=== PATIENT | female | born 1945 ===

== ENCOUNTER 2016-06-03 12:58 | Observation (INO) | payer MEDICARE, OTHER ==
[2016-06-03 12:58] VITALS: BMI 28.3
--- NOTE | 2016-06-03 13:31 | ED PDOC ---
HPI: Eye Injury/Pain Time Seen by Provider: 06/03/16 13:01 Chief Complaint (Nursing): Eye Problem History Per: Patient History/Exam Limitations: no limitations Onset/Duration Of Symptoms: Days (2), Gradual Current Symptoms Are (Timing): Still Present Severity: Mild Wears Contact Lens?: No Associated Symptoms: Discharge From Eye (mild). denies: Decreased Vision, Swelling, FB Sensation, Itching Additional History Per: Patient Additional Complaint(s): sent in by same day surgery for conjunctivitis schedule for ORIF Past Medical History Reviewed: Historical Data, Nursing Documentation, Vital Signs Vital Signs: Last Vital Signs Temp Pulse Resp BP Pulse Ox 98 06/03/16 13:00 - Medical History PMH: Alzheimer's Disease, Arthritis, Dementia, HTN, Hypothyroidism, Rheumatoid Arthritis Denies: Chronic Kidney Disease - Family History Family History: States: Unknown Family Hx - Living Arrangements Living Arrangements: With Family - Social History Current smoker - smoking cessation education provided: No - Home Medications Home Medications: Ambulatory Orders Medication Instructions Recorded Alendronate Sodium/Vitamin D3 1 tab PO DAILY 06/03/16 [Fosamax Plus D 70 mg-5600 Iu] Aspirin [Ecotrin] 81 mg PO DAILY 06/03/16 Celecoxib [CeleBREX] 200 mg PO DAILY 06/03/16 Clonazepam [Klonopin] 0.5 mg PO DAILY 06/03/16 Enalapril Maleate [Vasotec] 20 mg PO DAILY 06/03/16 Ergocalciferol [Drisdol 50,000 1 cap PO DAILY 06/03/16 Intl Units Cap] Esomeprazole Magnesium [Nexium] 40 mg PO DAILY 06/03/16 Etanercept [Enbrel] 50 mg SC .QWEEK 06/03/16 Folic Acid 1 mg PO DAILY 06/03/16 Gabapentin [Neurontin] 100 mg PO HS 06/03/16 Levocetirizine Dihydrochloride 5 mg PO DAILY 06/03/16 [Xyzal] Levothyroxine [Synthroid] 50 mcg PO DAILY 06/03/16 Metoprolol Tartrate [Lopressor] 50 mg PO DAILY 06/03/16 Rivastigmine 9.5 mg/24 hr [Exelon 1 patch .ROUTE DAILY 06/03/16 9.5 mg/24 hr Patch] traMADol [Ultram] 50 mg PO DAILY 06/03/16 - Allergies Allergies/Adverse Reactions: Allergies Allergy/AdvReac Type Severity Reaction Status Date / Time No Known Allergies Allergy Verified 06/03/16 13:00 Review of Systems ROS Statement: Except As Marked, All Systems Reviewed And Found Negative Constitutional: Negative for: Fever, Chills Eyes: Positive for: Conjunctivae Inflammation. Negative for: Pain, Vision Change, Eyelid Inflammation Cardiovascular: Negative for: Chest Pain Respiratory: Negative for: Cough, Shortness of Breath Gastrointestinal: Negative for: Nausea, Vomiting Neurological: Negative for: Weakness, Numbness, Headache Physical Exam - Reviewed Nursing Documentation Reviewed: Yes Vital Signs Reviewed: Yes - Physical Exam Appears: Positive for: Uncomfortable Head Exam: Positive for: ATRAUMATIC, NORMAL INSPECTION, NORMOCEPHALIC Eye Exam: Positive for: Normal appearance, EOMI, PERRL. Negative for: Periorbital swelling, Periorbital tenderness, Conjunctival injection Neck: Positive for: Normal, Painless ROM, Supple. Negative for: Decreased ROM, Limited ROM, Trachea Midline Cardiovascular/Chest: Positive for: Regular Rate, Rhythm, Chest Non Tender. Negative for: Edema, Gallop, Murmur, Bradycardia, Tachycardia Respiratory: Positive for: Normal Breath Sounds. Negative for: Decreased Breath Sounds, Accessory Muscle Use, Crackles, Rales, Rhonchi, Stridor, Wheezing Extremity: Positive for: Normal ROM. Negative for: Tenderness, Pedal Edema Neurologic/Psych: Positive for: Alert, box bender II-XII, Oriented. Negative for: Motor/Sensory Deficits - ECG O2 Sat by Pulse Oximetry: 98 Pulse Ox Interpretation: Normal Disposition - Clinical Impression Clinical Impression: Conjunctivitis - Patient ED Disposition Is Patient to be Admitted: Yes Counseled Patient/Family Regarding: Studies Performed, Diagnosis - Disposition Disposition Time: 13:31 Condition: STABLE - Pt Status Changed To: Hospital Disposition Of: Observation - POA Present On Arrival: None
[2016-06-03 14:02] LABS: BASO % 0.8 % (0.0-2.0); EOS # 0.1 K/uL (0.0-0.7); HEMATOCRIT 32.8 % (34.0-47.0); LYMPH # 1.8 K/uL (1.0-4.3); MEAN CELL VOLUME 86.9 fl (81.0-99.0); MEAN CORPUSCULAR HEMOGLOBIN 29.2 pg (27.0-31.0); MEAN CORPUSCULAR HGB CONC 33.6 g/dL (33.0-37.0); MEAN PLATELET VOLUME 8.6 fl (7.2-11.7); MONO # 0.5 K/uL (0.0-0.8); MONO % 7.9 % (0.0-10.0); NEUT # 3.3 K/uL (1.8-7.0); NEUT % 58.3 % (50.0-75.0); NRBC % 0.2 % (0.0-0.0); RED CELL DISTRIBUTION WIDTH 14.3 % (11.5-14.5); WHITE BLOOD COUNT 5.7 K/uL (4.8-10.8)
[2016-06-03 14:32] LABS: ALB/GLOB RATIO 1.1 (1.0-2.1); ALKALINE PHOSPHATASE 101 U/L (38-126); ALT/SGPT 19 U/L (9-52); AST/SGOT 26 U/L (14-36); BILIRUBIN,TOTAL 0.5 mg/dl (0.2-1.3); BLOOD UREA NITROGEN 10 mg/dl (7-17); CALCIUM 9.1 mg/dL (8.4-10.2); CARBON DIOXIDE 24 mmol/L (22-30); CHLORIDE 106 mmol/L (98-107); GFR AFRICAN-AMERICAN > 60; GLUCOSE,RANDOM 181 mg/dL (65-105); POTASSIUM 3.3 MMOL/L (3.6-5.0); SODIUM 143 mmol/l (132-148); TOTAL PROTEIN 6.8 G/DL (6.3-8.2)
--- NOTE | 2016-06-03 15:57 | CP.PCM.HP ---
History of Present Illness - History of Present Illness History of Present Illness: Chief complaint : Left eye redness , left shoulder pain HPI: 70 y/o lady with hx of HTN , RA,OA, Dementia, Hypothyroidism, came in for scheduled left shoulder ORIF. The patient had a history of fall in February 2016 and since then has been having severe pain on her left shoulder. She was seen by Dr Max and was worked up for this . She is unable to do full ROM of the left shoulder despite daily intake of analgesics. MRI of the Left shoulder showed Humeral Head Impaction. She was then advised surgery - pt scheduled for surgery today however cancelled due to eye infection. 2 days ago she woke up with left eye redness , noted some discharge and crusting . Denies eye pain but states she has eye itching. Denies visual change, no headache. No fever. Hx of mild cataract on the same eye but was told she didnt need surgery yet. Code Status: Full Code Surrogate Decision Maker : sven Scherer Present on Admission - Present on Admission Any Indicators Present on Admission: No Review of Systems - Review of Systems Review of Systems: All systems: reviewed and no additional remarkable complaints except - Constitutional Constitutional: absent: Fever, Headache - EENT Eyes: Discharge, Irritation, Itchy Eyes, Other (erythema). absent: Blurred Vision, Change in Vision, Diplopia, Pain Ears: absent: Ear Discharge, Ear Pain, Tinnitus Nose/Mouth/Throat: absent: Nasal Congestion, Nose Pain, Sinus Pressure - Cardiovascular Cardiovascular: absent: Chest Pain, Chest Pain at Rest, Dyspnea, Lightheadedness , Orthopnea - Respiratory Respiratory: absent: Cough, Dyspnea, Dyspnea on Exertion - Gastrointestinal Gastrointestinal: absent: Nausea, Vomiting - Genitourinary Genitourinary: absent: Dysuria, Hematuria - Musculoskeletal Musculoskeletal: Arthralgias, Limited Range of Motion - Integumentary Integumentary: absent: Pruritus, Rash - Neurological Neurological: Memory Loss. absent: Focal Weakness, Headaches - Psychiatric Psychiatric: absent: Depression - Endocrine Endocrine: absent: Polydipsia, Polyphagia, Polyuria - Hematologic/Lymphatic Hematologic: absent: Easy Bleeding, Easy Bruising Past Patient History - Infectious Disease Hx of Infectious Diseases: None - Tetanus Immunizations Tetanus Immunization: Unknown - Past Medical History & Family History Past Medical History?: Yes - Past Social History Smoking Status: Never Smoked Chewing Tobacco Use: No Cigar Use: No Alcohol: None Drugs: Denies Home Situation {Lives}: Alone Domestic Violence: Negative - CARDIAC Hx Hypertension: Yes - PULMONARY Hx Respiratory Disorders: No - NEUROLOGICAL Hx Alzheimer's Disease: Yes Hx Dementia: Yes - HEENT Hx HEENT Problems: No Hx Cataracts: Yes - RENAL Hx Chronic Kidney Disease: No - ENDOCRINE/METABOLIC Hx Hypothyroidism: Yes - HEMATOLOGICAL/ONCOLOGICAL Hx Blood Disorders: No Hx Blood Transfusions: No - INTEGUMENTARY Hx Dermatological Problems: No - MUSCULOSKELETAL/RHEUMATOLOGICAL Hx Arthritis: Yes Hx Rheumatoid Arthritis: Yes - GASTROINTESTINAL Hx Gastrointestinal Disorders: No Other/Comment: GERD - GENITOURINARY/GYNECOLOGICAL Hx Genitourinary Disorders: No - PSYCHIATRIC Hx Psychophysiologic Disorder: No Hx Substance Use: No - SURGICAL HISTORY Hx Surgeries: Yes Other/Comment: RIGHT FOOT SURGERY-3 YEARS AGO. REMOVAL OF CYST BOTH BREAST-15 YEARS AGO - ANESTHESIA Hx Anesthesia: Yes Hx Anesthesia Reactions: No Hx Malignant Hyperthermia: No Meds Allergies/Adverse Reactions: Allergies Allergy/AdvReac Type Severity Reaction Status Date / Time No Known Allergies Allergy Verified 06/03/16 13:00 Physical Exam - Constitutional Additional comments: Physical Exam - Constitutional Appears: No Acute Distress - Head Exam Head Exam: NORMAL INSPECTION, NORMOCEPHALIC - Eye Exam Eye Exam: Conjunctival injection (left), EOMI, PERRL Additional comments: conjunctival erythema left eye, nontender - ENT Exam ENT Exam: Mucous Membranes Dry, Normal External Ear Exam - Neck Exam Neck exam: Positive for: Full Rom. Negative for: Meningismus - Respiratory Exam Respiratory Exam: NORMAL BREATHING PATTERN. absent: Respiratory Distress - Cardiovascular Exam Cardiovascular Exam: REGULAR RHYTHM, +S1, +S2 - GI/Abdominal Exam GI & Abdominal Exam: Normal Bowel Sounds, Soft. absent: Tenderness - Extremities Exam Extremities exam: Positive for: normal capillary refill, pedal pulses present. Negative for: calf tenderness Additional comments: left shoulder pain on ROM Hand RA deformity - Back Exam Back exam: NORMAL INSPECTION. absent: CVA tenderness (L), CVA tenderness (R), paraspinal tenderness - Neurological Exam Neurological exam: Alert, Oriented x3, Reflexes Normal - Psychiatric Exam Psychiatric exam: Normal Affect, Normal Mood - Skin Skin Exam: Dry, Normal Color, Warm Results - Vital Signs Recent Vital Signs: Last Vital Signs Temp Pulse Resp BP Pulse Ox 98 06/03/16 13:31 - Labs Result Diagrams: 06/03/16 13:40 06/03/16 13:40 Labs: Laboratory Results - last 24 hr 06/03/16 13:40 WBC 5.7 RBC 3.77 L Hgb 11.0 L Hct 32.8 L MCV 86.9 MCH 29.2 MCHC 33.6 RDW 14.3 Plt Count 215 MPV 8.6 Neut % (Auto) 58.3 Lymph % (Auto) 31.0 [place] % (Auto) 7.9 Eos % (Auto) 2.0 Baso % (Auto) 0.8 Neut # 3.3 Lymph # 1.8 [place] # 0.5 Eos # 0.1 Baso # 0.0 Sodium 143 Potassium 3.3 L Chloride 106 Carbon Dioxide 24 Anion Gap 16 BUN 10 Creatinine 0.6 L Est GFR ( Amer) > 60 Est GFR (Non-Af Amer) > 60 Random Glucose 181 H Calcium 9.1 Total Bilirubin 0.5 AST 26 ALT 19 Alkaline Phosphatase 101 Total Protein 6.8 Albumin 3.6 Globulin 3.2 Albumin/Globulin Ratio 1.1 - EKG Data EKG Interpreted by: Myself EKG shows normal: Sinus rhythm Assessment & Plan - Assessment and Plan (Free Text) Assessment: 70 y/o lady with hx of RA, HTN, Dementia, Hypothyroidism, presented to the Same Day Surgery Unit for scheduled left shoulder surgery, complains of left shoulder pain. Also found to have left conjunctival erythema. (1) Left shoulder pain Status: Chronic Hx of fall in February since then has had severe left shoulder pain and unable to do ROM scheduled for left shoulder ORIF Pain mgt Ortho consult (2) Rheumatoid arthritis Status: Chronic Pt on Enbrel Pain mgt (3) Conjunctival hyperemia, left eye poss Conjunctivitis Status: Acute Ophtha consult start antibiotic eye drops (4) HTN (hypertension) Status: Chronic cont Vasotec and Atenolol off ASA for 6 days (5) Hypothyroidism Status: Chronic cont Levothyroxine (6) Dementia Status: Chronic Pt on Exelon patch ( 7 ) Anxiety - pt on Klonopin Decision To Admit - Pt Status Changed To: Hospital Disposition Of: Inpatient - Admit Certification Admit to Inpatient:: After my assessment, the patient will require hospitalization for at least two midnights. This is because of the severity of symptoms shown, intensity of services needed, and/or the medical risk in this patient being treated as an outpatient. - . Bed Request Type: Med/Surg Admitting Physician: Mervat Gunderson
[2016-06-03] MEDS ORDERED: Potassium Chloride 20 mEq ER Tab PO ONE ×2 (16:02→19:43)
--- NOTE | 2016-06-03 17:21 | CP.PCM.CON ---
History of Present Illness - History of Present Illness History of Present Illness: ID: 70 yo female present with pain and rstricted ROM L shoulder pt with eye pain and evidence for conjunctivitis Past Patient History - Infectious Disease Hx of Infectious Diseases: None - Tetanus Immunizations Tetanus Immunization: Unknown - Past Medical History & Family History Past Medical History?: Yes - Past Social History Smoking Status: Never Smoked Chewing Tobacco Use: No Cigar Use: No Alcohol: None Drugs: Denies Home Situation {Lives}: Alone Domestic Violence: Negative - CARDIAC Hx Hypertension: Yes - PULMONARY Hx Respiratory Disorders: No - NEUROLOGICAL Hx Alzheimer's Disease: Yes Hx Dementia: Yes - HEENT Hx HEENT Problems: No Hx Cataracts: Yes - RENAL Hx Chronic Kidney Disease: No - ENDOCRINE/METABOLIC Hx Hypothyroidism: Yes - HEMATOLOGICAL/ONCOLOGICAL Hx Blood Disorders: No Hx Blood Transfusions: No - INTEGUMENTARY Hx Dermatological Problems: No - MUSCULOSKELETAL/RHEUMATOLOGICAL Hx Arthritis: Yes Hx Rheumatoid Arthritis: Yes - GASTROINTESTINAL Hx Gastrointestinal Disorders: No Other/Comment: GERD - GENITOURINARY/GYNECOLOGICAL Hx Genitourinary Disorders: No - PSYCHIATRIC Hx Psychophysiologic Disorder: No Hx Substance Use: No - SURGICAL HISTORY Hx Surgeries: Yes Other/Comment: RIGHT FOOT SURGERY-3 YEARS AGO. REMOVAL OF CYST BOTH BREAST-15 YEARS AGO - ANESTHESIA Hx Anesthesia: Yes Hx Anesthesia Reactions: No Hx Malignant Hyperthermia: No Meds Allergies/Adverse Reactions: Allergies Allergy/AdvReac Type Severity Reaction Status Date / Time No Known Allergies Allergy Verified 06/03/16 13:00 - Medications Medications: Current Medications Ciprofloxacin (Ciloxan 0.3% Oph Soln) 1 drop OS Q4 [facility] Clonazepam (Klonopin) 0.25 mg PO HS [facility] Enalapril Maleate (Vasotec) 20 mg PO BID [facility] Folic Acid (Folic Acid) 1 mg PO DAILY [facility] Gabapentin (Neurontin) 100 mg PO HS [facility] Home Med (Ropinirole Hcl [Ropinirole Hcl]) 1 tab PO HS [facility] Levothyroxine Sodium (Synthroid) 50 mcg PO DAILY [facility] Metoprolol Succinate (Toprol Xl) 50 mg PO DAILY [facility] Rivastigmine (Exelon 9.5 Mg/24 Hr Patch) 1 patch TD DAILY [facility] Tramadol HCl (Ultram) 50 mg PO Q12H J CARLOS Physical Exam - Additional Findings Additional findings: systemic-please efer to hospitalist note Musculoskekltal stance.gait- defrred pt presents with paim amd rstricted L shouder ROM N/V intact nmo gross deficits orthopedically stable Results - Vital Signs Recent Vital Signs: Last Vital Signs Temp Pulse Resp BP Pulse Ox 98 06/03/16 13:31 - Labs Result Diagrams: 06/03/16 13:40 06/03/16 13:40 Labs: Laboratory Results - last 24 hr 06/03/16 13:40 WBC 5.7 RBC 3.77 L Hgb 11.0 L Hct 32.8 L MCV 86.9 MCH 29.2 MCHC 33.6 RDW 14.3 Plt Count 215 MPV 8.6 Neut % (Auto) 58.3 Lymph % (Auto) 31.0 [place] % (Auto) 7.9 Eos % (Auto) 2.0 Baso % (Auto) 0.8 Neut # 3.3 Lymph # 1.8 [place] # 0.5 Eos # 0.1 Baso # 0.0 Sodium 143 Potassium 3.3 L Chloride 106 Carbon Dioxide 24 Anion Gap 16 BUN 10 Creatinine 0.6 L Est GFR ( Amer) > 60 Est GFR (Non-Af Amer) > 60 Random Glucose 181 H Calcium 9.1 Total Bilirubin 0.5 AST 26 ALT 19 Alkaline Phosphatase 101 Total Protein 6.8 Albumin 3.6 Globulin 3.2 Albumin/Globulin Ratio 1.1 - Impressions Impression: Imaging Xrayus reval non unio greater tuberosity fx p pt afdmitted for treatment of eye infection after medical stabilization for ORIF L prox humerus fx
[2016-06-03] MEDS: Ciprofloxacin 0.3% OPTH SOLN OS SCH ×2 (20:05→23:01)
[2016-06-03] MEDS ORDERED: ROPINIROLE HCL PO SCH (22:00)
[2016-06-04] MEDS: Ciprofloxacin 0.3% OPTH SOLN OS SCH ×6 (01:08→21:06)
[2016-06-04] MEDS: Levothyroxine 50 MCG TAB PO SCH (06:12)
--- NOTE | 2016-06-04 07:52 | CP.PCM.PN ---
Subjective - Date & Time of Evaluation Date of Evaluation: 06/04/16 Time of Evaluation: 07:40 - Subjective Subjective: S-pt stil;l withpain and rstricted ROM L shoulder/ pt with conjunctivitis L eye Objective - Vital Signs/Intake and Output Vital Signs (last 24 hours): Temp Pulse Resp BP Pulse Ox 98.5 F 58 L 20 138/79 98 06/03/16 21:57 06/04/16 00:07 06/04/16 00:07 06/03/16 21:57 06/04/16 00:07 - Medications Medications: Current Medications Ciprofloxacin (Ciloxan 0.3% [facility]) 1 drop OS Q4 [facility] Last Admin: 06/04/16 04:50 Dose: 1 drop Clonazepam (Klonopin) 0.25 mg PO HS [facility] Last Admin: 06/03/16 23:00 Dose: 0.25 mg Enalapril Maleate (Vasotec) 20 mg PO BID [facility] Last Admin: 06/03/16 20:03 Dose: 20 mg Folic Acid (Folic Acid) 1 mg PO DAILY [facility] Gabapentin (Neurontin) 100 mg PO HS [facility] Last Admin: 06/03/16 23:00 Dose: 100 mg Home Med (Ropinirole Hcl [Ropinirole Hcl]) 1 tab PO HS [facility] Levothyroxine Sodium (Synthroid) 50 mcg PO DAILY@0630 [facility] Last Admin: 06/04/16 06:12 Dose: 50 mcg Metoprolol Succinate (Toprol Xl) 50 mg PO DAILY [facility] Pneumococcal Polyvalent Vaccine (Pneumovax 23 Vaccine) 0.5 ml IM .ONCE ONE Stop: 06/04/16 09:01 Rivastigmine (Exelon 9.5 Mg/24 Hr Patch) 1 patch TD DAILY [facility] Tramadol HCl (Ultram) 50 mg PO Q12H [facility] Last Admin: 06/04/16 04:48 Dose: 50 mg - Labs Labs: 06/03/16 13:40 06/03/16 13:40 - Additional Findings Additional findings: O- pt still with tearing erythema and discomfort L eye systemic exam wnl otherwisw pt with opain and restriucted L shoulder ROM Assessment and Plan - Assessment and Plan (Free Text) Assessment: A-0 L prox humerus fx conjunctivitis L eye P- to ORtomorrow after medical clearance Dr grove on consult
[2016-06-04] MEDS ORDERED: Pneumococcal 23-Valent Vaccine IM ONE (09:00)
[2016-06-04] MEDS: Metoprolol Succinate 50 mg XL Tab PO SCH (10:33)
[2016-06-04 11:10] LABS: RBC URINE 3 /hpf (0-3); RENAL EPITHELIAL < 1 /hpf (0-3); URINE BILIRUBIN NEGATIVE (NEGATIVE); URINE BLOOD NEGATIVE (NEGATIVE); URINE COLOR YELLOW (YELLOW); URINE GLUCOSE (UA) NEG (Normal); URINE KETONE NEGATIVE (NEGATIVE); URINE LEUKOCYTE ESTERASE SMALL Leu/uL (Negative); URINE PROTEIN NEGATIVE (NEGATIVE); URINE UROBILINOGEN 0.2-1.0 mg/dL (0.2-1.0); WBC URINE 15 /hpf (0-5)
--- NOTE | 2016-06-04 11:17 | CP.PCM.CON ---
History of Present Illness - History of Present Illness History of Present Illness: 70 y/o lady with hx of HTN , RA,OA, Dementia, Hypothyroidism, came in for scheduled left shoulder ORIF. The patient had a history of fall in February 2016 and since then has been having severe pain on her left shoulder. 2 days ago she woke up with left eye redness , noted some discharge and crusting . Denies eye pain but states she has eye itching. Denies visual change, no headache. No fever. Hx of mild cataract on the same eye but was told she didnt need surgery yet. Past Patient History - Infectious Disease Hx of Infectious Diseases: None - Tetanus Immunizations Tetanus Immunization: Unknown - Past Medical History & Family History Past Medical History?: Yes - Past Social History Smoking Status: Never Smoked - CARDIAC Hx Cardiac Disorders: Yes Hx Hypertension: Yes - PULMONARY Hx Respiratory Disorders: No - NEUROLOGICAL Hx Neurological Disorder: Yes Hx Alzheimer's Disease: Yes Hx Dementia: Yes - HEENT Hx HEENT Problems: Yes Hx Cataracts: Yes (hx of mild cataract on left eye but told no sx needed yet) - RENAL Hx Chronic Kidney Disease: No - ENDOCRINE/METABOLIC Hx Endocrine Disorders: Yes Hx Hypothyroidism: Yes - HEMATOLOGICAL/ONCOLOGICAL Hx Blood Disorders: No - INTEGUMENTARY Hx Dermatological Problems: No - MUSCULOSKELETAL/RHEUMATOLOGICAL Hx Musculoskeletal Disorders: Yes Hx Arthritis: Yes Hx Falls: Yes Hx Rheumatoid Arthritis: Yes - GASTROINTESTINAL Hx Gastrointestinal Disorders: Yes Other/Comment: GERD - GENITOURINARY/GYNECOLOGICAL Hx Genitourinary Disorders: No - PSYCHIATRIC Hx Psychophysiologic Disorder: No Hx Substance Use: No - SURGICAL HISTORY Hx Surgeries: Yes Other/Comment: RIGHT FOOT SURGERY-3 YEARS AGO. REMOVAL OF CYST BOTH BREAST-15 YEARS AGO - ANESTHESIA Hx Anesthesia: Yes Hx Anesthesia Reactions: No Hx Malignant Hyperthermia: No Meds Allergies/Adverse Reactions: Allergies Allergy/AdvReac Type Severity Reaction Status Date / Time No Known Allergies Allergy Verified 06/03/16 13:00 - Medications Medications: Current Medications Ciprofloxacin (Ciloxan 0.3% Oph Soln) 1 drop OS Q4 [facility] Last Admin: 06/04/16 10:30 Dose: 1 drop Clonazepam (Klonopin) 0.25 mg PO HS [facility] Last Admin: 06/03/16 23:00 Dose: 0.25 mg Enalapril Maleate (Vasotec) 20 mg PO BID [facility] Last Admin: 06/04/16 10:34 Dose: 20 mg Folic Acid (Folic Acid) 1 mg PO DAILY [facility] Last Admin: 06/04/16 10:31 Dose: 1 mg Gabapentin (Neurontin) 100 mg PO HS [facility] Last Admin: 06/03/16 23:00 Dose: 100 mg Home Med (Ropinirole Hcl [Ropinirole Hcl]) 1 tab PO [facility] Levothyroxine Sodium (Synthroid) 50 mcg PO DAILY@0630 [facility] Last Admin: 06/04/16 06:12 Dose: 50 mcg Metoprolol Succinate (Toprol Xl) 50 mg PO DAILY [facility] Last Admin: 06/04/16 10:33 Dose: 50 mg Rivastigmine (Exelon 9.5 Mg/24 Hr Patch) 1 patch TD DAILY [facility] Last Admin: 06/04/16 10:31 Dose: 1 patch Tramadol HCl (Ultram) 50 mg PO Q12H [facility] Last Admin: 06/04/16 04:48 Dose: 50 mg Results - Vital Signs Recent Vital Signs: Last Vital Signs Temp 98.5 F 06/04/16 08:23 Pulse 77 06/04/16 10:33 Resp 18 06/04/16 08:23 BP 125/65 06/04/16 10:33 Pulse Ox 96 06/04/16 08:23 - Labs Result Diagrams: 06/03/16 13:40 06/03/16 13:40 Labs: Laboratory Results - last 24 hr 06/03/16 13:40 WBC 5.7 RBC 3.77 L Hgb 11.0 L Hct 32.8 L MCV 86.9 MCH 29.2 MCHC 33.6 RDW 14.3 Plt Count 215 MPV 8.6 Neut % (Auto) 58.3 Lymph % (Auto) 31.0 [place] % (Auto) 7.9 Eos % (Auto) 2.0 Baso % (Auto) 0.8 Neut # 3.3 Lymph # 1.8 [place] # 0.5 Eos # 0.1 Baso # 0.0 Sodium 143 Potassium 3.3 L Chloride 106 Carbon Dioxide 24 Anion Gap 16 BUN 10 Creatinine 0.6 L Est GFR ( Amer) > 60 Est GFR (Non-Af Amer) > 60 Random Glucose 181 H Calcium 9.1 Total Bilirubin 0.5 AST 26 ALT 19 Alkaline Phosphatase 101 Total Protein 6.8 Albumin 3.6 Globulin 3.2 Albumin/Globulin Ratio 1.1
[2016-06-04 11:51] LABS: PARTIAL THROMBOPLASTIN TIME 24.6 SECONDS (23.3-32.5)
[2016-06-04 12:06] LABS: BLOOD UREA NITROGEN 15 mg/dl (7-17); CALCIUM 9.3 mg/dL (8.4-10.2); CARBON DIOXIDE 26 mmol/L (22-30); CHLORIDE 103 mmol/L (98-107); GFR AFRICAN-AMERICAN > 60; GLUCOSE,RANDOM 148 mg/dL (65-105); SODIUM 142 mmol/l (132-148)
--- NOTE | 2016-06-04 12:20 | CP.PCM.CON ---
History of Present Illness - History of Present Illness History of Present Illness: THE PATIENT IS A 70 YEAR OLD FEMALE WITH A HISTORY OF RA AND OA WHO FELL IN FEBRUARY AND SUSTAINED A FRACTURE OF THE LEFT HUMERUS. SHE WAS ADMITTED YESTERDAY FOR THIS AND WAS FOUND TO HAVE CONJUNCTIVITIS AND IT WAS DECIDED TO TREAT THIS FIRST AND PROCEED WITH SURGERY TOMORROW. SHE ALSO HAS A HISTORY OF HYPERTENSION AND THYROID DISEASE. SHE DENIES CHEST PAIN, CAD, COPD, DM OR PUD. CARDIOLOGY WAS ASKED TO SEE HER FOR CARDIAC CLEARANCE AND TO FOLLOW HER ON THIS ADMISSION. Past Patient History - Infectious Disease Hx of Infectious Diseases: None - Tetanus Immunizations Tetanus Immunization: Unknown - Past Medical History & Family History Past Medical History?: Yes - Past Social History Smoking Status: Never Smoked - CARDIAC Hx Cardiac Disorders: Yes Hx Hypertension: Yes - PULMONARY Hx Respiratory Disorders: No - NEUROLOGICAL Hx Neurological Disorder: Yes Hx Alzheimer's Disease: Yes Hx Dementia: Yes - HEENT Hx HEENT Problems: Yes Hx Cataracts: Yes (hx of mild cataract on left eye but told no sx needed yet) - RENAL Hx Chronic Kidney Disease: No - ENDOCRINE/METABOLIC Hx Endocrine Disorders: Yes Hx Hypothyroidism: Yes - HEMATOLOGICAL/ONCOLOGICAL Hx Blood Disorders: No - INTEGUMENTARY Hx Dermatological Problems: No - MUSCULOSKELETAL/RHEUMATOLOGICAL Hx Musculoskeletal Disorders: Yes Hx Arthritis: Yes Hx Falls: Yes Hx Rheumatoid Arthritis: Yes - GASTROINTESTINAL Hx Gastrointestinal Disorders: Yes Other/Comment: GERD - GENITOURINARY/GYNECOLOGICAL Hx Genitourinary Disorders: No - PSYCHIATRIC Hx Psychophysiologic Disorder: No Hx Substance Use: No - SURGICAL HISTORY Hx Surgeries: Yes Other/Comment: RIGHT FOOT SURGERY-3 YEARS AGO. REMOVAL OF CYST BOTH BREAST-15 YEARS AGO - ANESTHESIA Hx Anesthesia: Yes Hx Anesthesia Reactions: No Hx Malignant Hyperthermia: No Meds Allergies/Adverse Reactions: Allergies Allergy/AdvReac Type Severity Reaction Status Date / Time No Known Allergies Allergy Verified 06/03/16 13:00 - Medications Medications: Current Medications Ciprofloxacin (Ciloxan 0.3% [facility]) 1 drop OS Q4 [facility] Last Admin: 06/04/16 10:30 Dose: 1 drop Clonazepam (Klonopin) 0.25 mg PO HS [facility] Last Admin: 06/03/16 23:00 Dose: 0.25 mg Enalapril Maleate (Vasotec) 20 mg PO BID [facility] Last Admin: 06/04/16 10:34 Dose: 20 mg Folic Acid (Folic Acid) 1 mg PO DAILY [facility] Last Admin: 06/04/16 10:31 Dose: 1 mg Gabapentin (Neurontin) 100 mg PO HS [facility] Last Admin: 06/03/16 23:00 Dose: 100 mg Levothyroxine Sodium (Synthroid) 50 mcg PO DAILY@0630 [facility] Last Admin: 06/04/16 06:12 Dose: 50 mcg Metoprolol Succinate (Toprol Xl) 50 mg PO DAILY [facility] Last Admin: 06/04/16 10:33 Dose: 50 mg Rivastigmine (Exelon 9.5 Mg/24 Hr Patch) 1 patch TD DAILY [facility] Last Admin: 06/04/16 10:31 Dose: 1 patch Tramadol HCl (Ultram) 50 mg PO Q12H [facility] Last Admin: 06/04/16 04:48 Dose: 50 mg Physical Exam - Respiratory Exam Respiratory Exam: Clear to Auscultation Bilateral - Cardiovascular Exam Cardiovascular Exam: REGULAR RHYTHM, +S1, +S2 - Extremities Exam Extremities exam: Positive for: normal inspection - Additional Findings Additional findings: PAT EKG READ NSR BUT IS TOO DARK TO READ WELL CXR NAD PT 106 K+ 4.0 Results - Vital Signs Recent Vital Signs: Last Vital Signs Temp 98.5 F 06/04/16 08:23 Pulse 77 06/04/16 10:33 Resp 18 06/04/16 08:23 BP 125/65 06/04/16 10:33 Pulse Ox 96 06/04/16 08:23 - Labs Result Diagrams: 06/03/16 13:40 06/04/16 11:54 Labs: Laboratory Results - last 24 hr 06/03/16 06/04/16 06/04/16 13:40 10:48 11:54 WBC 5.7 RBC 3.77 L Hgb 11.0 L Hct 32.8 L MCV 86.9 MCH 29.2 MCHC 33.6 RDW 14.3 Plt Count 215 MPV 8.6 Neut % (Auto) 58.3 Lymph % (Auto) 31.0 [place] % (Auto) 7.9 Eos % (Auto) 2.0 Baso % (Auto) 0.8 Neut # 3.3 Lymph # 1.8 [place] # 0.5 Eos # 0.1 Baso # 0.0 PT 10.8 INR 1.04 APTT 24.6 Sodium 143 142 Potassium 3.3 L 4.0 Chloride 106 103 Carbon Dioxide 24 26 Anion Gap 16 18 BUN 10 15 Creatinine 0.6 L 0.7 Est GFR ( Amer) > 60 > 60 Est GFR (Non-Af Amer) > 60 > 60 Random Glucose 181 H 148 H Calcium 9.1 9.3 Total Bilirubin 0.5 AST 26 ALT 19 Alkaline Phosphatase 101 Total Protein 6.8 Albumin 3.6 Globulin 3.2 Albumin/Globulin Ratio 1.1 Urine Color Yellow Urine Clarity Clear Urine pH 6.0 Ur Specific [place] 1.016 Urine Protein Negative Urine Glucose (UA) Neg Urine Ketones Negative Urine Blood Negative Urine Nitrate Negative Urine Bilirubin Negative Urine Urobilinogen 0.2-1.0 Ur Leukocyte Esterase Small Urine RBC (Auto) 3 Urine Microscopic WBC 15 H Ur Squamous Epith Cells < 1 Ur Renal Epithelial Cell < 1 Assessment & Plan - Assessment and Plan (Free Text) Assessment: FALL WITH LEFT HUMERUS FRACTURE HYPERTENSION THYROID DISEASE CONJUNCTIVITIS Plan: CONTINUE METOPROLOL, ENALAPRIL, SYNTHROID, CIPRO EYEDROPS REPEAT EKG ORDERED THE PATIENT IS CLEARED FOR SURGERY FROM THE CARDIAC VIEWPOINT
--- NOTE | 2016-06-04 13:14 | CP.PCM.PN ---
Subjective - Date & Time of Evaluation Date of Evaluation: 06/04/16 Time of Evaluation: 13:00 - Subjective Subjective: No fever denies CP no SOB no abd pain no Dysuria eye erythema resolved Objective - Vital Signs/Intake and Output Vital Signs (last 24 hours): Temp Pulse Resp BP Pulse Ox 98.5 F 77 18 125/65 96 06/04/16 08:23 06/04/16 10:33 06/04/16 08:23 06/04/16 10:33 06/04/16 08:23 - Medications Medications: Current Medications Ciprofloxacin (Ciloxan 0.3% [facility]) 1 drop OS Q4 [facility] Last Admin: 06/04/16 10:30 Dose: 1 drop Clonazepam (Klonopin) 0.25 mg PO HS [facility] Last Admin: 06/03/16 23:00 Dose: 0.25 mg Enalapril Maleate (Vasotec) 20 mg PO BID [facility] Last Admin: 06/04/16 10:34 Dose: 20 mg Folic Acid (Folic Acid) 1 mg PO DAILY [facility] Last Admin: 06/04/16 10:31 Dose: 1 mg Gabapentin (Neurontin) 100 mg PO HS [facility] Last Admin: 06/03/16 23:00 Dose: 100 mg Levothyroxine Sodium (Synthroid) 50 mcg PO DAILY@0630 [facility] Last Admin: 06/04/16 06:12 Dose: 50 mcg Metoprolol Succinate (Toprol Xl) 50 mg PO DAILY [facility] Last Admin: 06/04/16 10:33 Dose: 50 mg Rivastigmine (Exelon 9.5 Mg/24 Hr Patch) 1 patch TD DAILY [facility] Last Admin: 06/04/16 10:31 Dose: 1 patch Tramadol HCl (Ultram) 50 mg PO Q12H [facility] Last Admin: 06/04/16 04:48 Dose: 50 mg - Labs Labs: 06/03/16 13:40 06/04/16 11:54 PT 10.8 SECONDS (9.6-11.2) 06/04/16 10:48 INR 1.04 (0.92-1.08) 06/04/16 10:48 APTT 24.6 SECONDS (23.3-32.5) 06/04/16 10:48 - Constitutional Appears: No Acute Distress - Head Exam Head Exam: NORMAL INSPECTION, NORMOCEPHALIC - Eye Exam Eye Exam: Conjunctival injection (left), EOMI, PERRL Additional comments: conjunctival erythema resolved - ENT Exam ENT Exam: Mucous Membranes Dry, Normal External Ear Exam - Neck Exam Neck exam: Positive for: Full Rom. Negative for: Meningismus - Respiratory Exam Respiratory Exam: NORMAL BREATHING PATTERN. absent: Respiratory Distress - Cardiovascular Exam Cardiovascular Exam: REGULAR RHYTHM, +S1, +S2 - GI/Abdominal Exam GI & Abdominal Exam: Normal Bowel Sounds, Soft. absent: Tenderness - Extremities Exam Extremities exam: Positive for: normal capillary refill, pedal pulses present. Negative for: calf tenderness Additional comments: left shoulder pain on ROM Hand RA deformity - Back Exam Back exam: NORMAL INSPECTION. absent: CVA tenderness (L), CVA tenderness (R), paraspinal tenderness - Neurological Exam Neurological exam: Alert, Oriented x3, Reflexes Normal - Psychiatric Exam Psychiatric exam: Normal Affect, Normal Mood - Skin Skin Exam: Dry, Normal Color, Warm Assessment and Plan - Assessment and Plan (Free Text) Assessment: 70 y/o lady with hx of RA, HTN, Dementia, Hypothyroidism, complains of left shoulder pain. Also found to have left conjunctival erythema. (1) Left shoulder pain Status: Chronic Hx of fall in February since then has had severe left shoulder pain and unable to do ROM scheduled for left shoulder ORIF in am NPO from [place] Pain mgt Ortho consulted- Dr Max Cardio Dr Momo espinoza pt pre op (2) Rheumatoid arthritis Status: Chronic Pt on Enbrel as outpt Pain mgt (3) Conjunctival hyperemia, left eye poss Conjunctivitis, improved Status: Acute ID consulted- Dr ayoub- covering for Dr Conner started antibiotic eye drops (4) HTN (hypertension) Status: Chronic cont Vasotec and Atenolol off ASA for 8 days (5) Hypothyroidism Status: Chronic cont Levothyroxine (6) Dementia Status: Chronic Pt on Exelon patch ( 7 ) Anxiety - pt on Klonopin (8) Urinalysis showed some WBC , asymptomatic Pt denies dysuria, no fever, no leukocytosis since pt sched for Ortho surgery- will start IV Ceftriaxone
[2016-06-05] MEDS: Ciprofloxacin 0.3% OPTH SOLN OS SCH ×5 (00:06→17:42)
[2016-06-05] MEDS: Levothyroxine 50 MCG TAB PO SCH (05:55)
[2016-06-05] MEDS: Metoprolol Succinate 50 mg XL Tab PO SCH (08:19)
[2016-06-05] MEDS ORDERED: Ropivacaine 0.5% 30ML IV ONE (10:27)
[2016-06-05] MEDS ORDERED: Lidocaine 1% Inj (20ml) ONE ×2 (10:27→11:08)
[2016-06-05] MEDS ORDERED: Midazolam 2 MG/2 ML VIAL ONE ×2 (10:34→12:47)
[2016-06-05] MEDS ORDERED: Propofol 10 mg/ml Inj (20 ML) ONE ×2 (10:34→12:47)
[2016-06-05] MEDS ORDERED: Rocuronium 10 mg/ml (5 ml) ONE ×2 (10:35→12:47)
--- NOTE | 2016-06-05 10:41 | RAD ---
HISTORY: preop COMPARISON: No prior. FINDINGS: LUNGS: Increased pulmonary vascular congestion. Right hilar enlargement. PLEURA: No significant pleural effusion identified, no pneumothorax apparent.Biapical pleural parenchymal thickening noted. CARDIOVASCULAR: Normal. OSSEOUS STRUCTURES: The osseous structures demonstrate degenerative changes. VISUALIZED UPPER ABDOMEN: Upper abdomen is suboptimally evaluated. OTHER FINDINGS: None. IMPRESSION: Increased pulmonary vascular congestion. Right hilar enlargement.
--- NOTE | 2016-06-05 11:00 | CON ---
This is a [facility] with chief complaint of painful swelling of the lef t eye. She was in her usual state of health until she was scheduled for surgery on her shoulder by Tito Max. Came for preadmission testing and was found to have severe conjunctivitis. Surgery was canceled. The patient was admitted for treatment of conjunctivitis prior to surgical treatment. PAST MEDICAL HISTORY: As noted, positive for osteoarthritis, hypertension. SOCIAL HISTORY: Does not drink, smoke, or use intravenous drugs. FAMILY HISTORY: Noncontributory. REVIEW OF SYSTEMS: Negative for chest pain, cough, shortness of breath. Negative for abdominal pain , nausea, vomiting, diarrhea. No change in bowel habits. No frequency, urgency of urination. No lo ss of consciousness. No seizures. FAMILY HISTORY: Noncontributory. No known allergies to medications. REVIEW OF SYSTEMS: As per HPI. PHYSICAL EXAMINATION: Reveals a chronically ill female, awake, alert. Speaks only [place]. Temperature 99, BP 130/70, pulse 76. EYES: Sclera nonicteric. NECK: No rigidity, no thyromegaly. CHEST: Symmetrical expansion. Bilateral air entry, decreased breath sounds. HEART: S1, S2. ABDOMEN: Soft, nontender. EXTREMITIES: No cyanosis, no clubbing, no edema. Pulses palpable. NEUROLOGIC: Nonfocal. Moves upper and lower extremities. Osteoarthritic changes noted. Cranial ne rves II-XII intact. Neurologically nonfocal. Generalized weakness, moves upper and lower extremities. PLAN: To continue IV antibiotic therapy. Chris Sy MD cc: [id number] TT: 06/05/2016 10:59:41 [email or web address]
--- NOTE | 2016-06-05 11:00 | CON ---
DATE: 06/04/2016 This is a 70-year-old female admitted with severe conjunctivitis. The patient was admitted with pain ful swelling of the left eye, was originally sent here for preadmission testing for orthopedic proced ure by Dr. Max. Because of the severe conjunctivitis, surgery was canceled. The patient was robina harpreet in the hospital and therapy was started. PAST MEDICAL HISTORY: Positive for osteoarthritis, hypertension, atherosclerotic heart disease. SOCIAL HISTORY: Denies drinking, smoking or IV drug abuse. FAMILY HISTORY: Noncontributory. ALLERGIES: No known allergies to medications. REVIEW OF SYSTEMS: Denies headache, earache, toothache. Positive swelling of the left eye, drainage , warmth, redness. No nasal discharge, no photophobia, no blurred vision, no neck stiffness. FAMILY HISTORY: Noncontributory. PHYSICAL EXAMINATION: GENERAL: Awake, alert. VITAL SIGNS: Temperature 98, BP 130/78, pulse 76. HEENT: Head normocephalic, atraumatic. Eyes: Left eye is red, swollen. Extraocular motions are in tact. Pupillary reflexes intact. Erythema present. Conjunctival injection present. Nose normal. Mouth: Pharynx not injected. Tongue midline. No thrush. Ears normal. NECK: No rigidity, no thyromegaly. HEART: S1, S2 regular. No murmurs, rubs, or gallops. ABDOMEN: Soft, nontender, no masses, no guarding. GENITAOURINARY AND RECTAL: Deferred. EXTREMITIES: Reveal osteoarthritic changes. Pulses are palpable. Joints freely movable. NEUROLOGIC: Cranial nerves II-XII intact. LABORATORY DATA: Reviewed. X-rays reviewed. Cultures reviewed. ASSESSMENT: Conjunctivitis, left eye. Needs careful close monitoring. Continue topical therapy. C onsider ophthalmology evaluation, may need IV therapy if no improvement in the next 24-48 hours. We will follow along with you and add further recommendations. Thank you for allowing me to participate in the care of this patient. Chris Sy MD cc: [id number] TT: 06/05/2016 11:00:08 Confirmation # [id number] Dictation # [id number]
[2016-06-05] MEDS ORDERED: Thrombin Topical 5,000 IU Spray Kit ONE (11:09)
[2016-06-05] MEDS ORDERED: Absorbable Gelatin Sponge Size 100 ONE (11:09)
[2016-06-05] MEDS ORDERED: Dextrose 5%/0.9% NS 1,000 ML IV SCH (11:30)
--- NOTE | 2016-06-05 11:40 | CARD ---
APPROVED REPORT EKG Measurement Heart [id number] <Conclusion> Sinus bradycardia Otherwise normal ECG
[2016-06-05 12:28] LABS: RBC URINE 3 /hpf (0-3); RENAL EPITHELIAL < 1 /hpf (0-3); URINE BILIRUBIN NEGATIVE (NEGATIVE); URINE BLOOD SMALL (NEGATIVE); URINE COLOR STRAW (YELLOW); URINE GLUCOSE (UA) NEG (Normal); URINE KETONE NEGATIVE (NEGATIVE); URINE LEUKOCYTE ESTERASE NEG Leu/uL (Negative); URINE PROTEIN NEGATIVE (NEGATIVE); URINE UROBILINOGEN 0.2-1.0 mg/dL (0.2-1.0); WBC URINE 1 /hpf (0-5)
[2016-06-05] MEDS ORDERED: Lactated Ringer's 1,000 ML IV ONE ×3 (13:00→13:55)
--- NOTE | 2016-06-05 13:28 | CP.PCM.PN ---
Subjective - Date & Time of Evaluation Date of Evaluation: 06/05/16 Time of Evaluation: 10:00 - Subjective Subjective: NO CHEST PAIN OR SOB Objective - Vital Signs/Intake and Output Vital Signs (last 24 hours): Temp Pulse Resp BP Pulse Ox 98.4 F 61 20 148/72 96 06/05/16 08:18 06/05/16 08:19 06/05/16 08:18 06/05/16 08:19 06/05/16 08:18 - Medications Medications: Current Medications Ciprofloxacin (Ciloxan 0.3% [facility]) 1 drop OS Q4 [facility] Last Admin: 06/05/16 08:20 Dose: 1 drop Clonazepam (Klonopin) 0.25 mg PO HS [facility] Last Admin: 06/04/16 21:13 Dose: 0.25 mg Enalapril Maleate (Vasotec) 20 mg PO BID [facility] Last Admin: 06/05/16 08:19 Dose: 20 mg Folic Acid (Folic Acid) 1 mg PO DAILY [facility] Last Admin: 06/05/16 08:24 Dose: Not Given Gabapentin (Neurontin) 100 mg PO HS [facility] Last Admin: 06/04/16 21:06 Dose: 100 mg Ceftriaxone Sodium 1 gm/ (Sodium Chloride) 100 mls @ 100 mls/hr IVPB DAILY [facility] Last Admin: 06/05/16 08:04 Dose: 100 mls/hr Dextrose/Sodium Chloride (Dextrose 5%/0.9% Ns 1000 Ml) 1,000 mls @ 60 mls/hr IV .[id number] [facility] Stop: 06/06/16 11:31 Levothyroxine Sodium (Synthroid) 50 mcg PO DAILY@0630 [facility] Last Admin: 06/05/16 05:55 Dose: 50 mcg Metoprolol Succinate (Toprol Xl) 50 mg PO DAILY [facility] Last Admin: 06/05/16 08:19 Dose: 50 mg Rivastigmine (Exelon 9.5 Mg/24 Hr Patch) 1 patch TD DAILY [facility] Last Admin: 06/05/16 08:23 Dose: Not Given Tramadol HCl (Ultram) 50 mg PO Q12H [facility] Last Admin: 06/05/16 04:15 Dose: Not Given - Labs Labs: 06/03/16 13:40 06/04/16 11:54 PT 10.8 SECONDS (9.6-11.2) 06/04/16 10:48 INR 1.04 (0.92-1.08) 06/04/16 10:48 APTT 24.6 SECONDS (23.3-32.5) 06/04/16 10:48 - Respiratory Exam Respiratory Exam: Clear to Ausculation Bilateral - Cardiovascular Exam Cardiovascular Exam: REGULAR RHYTHM, +S1, +S2 - Extremities Exam Extremities Exam: Normal Inspection - Additional Findings Additional findings: EKG SINUS, R 58 Assessment and Plan - Assessment and Plan (Free Text) Assessment: LEFT HUMERUS FRACTURE HYPERTENSION Plan: CONTINUE ENALAPRIL AND TOPROL FOR SURGERY TODAY
--- NOTE | 2016-06-05 14:43 | PCM.SURG1 ---
Surgeon's Initial Post Op Note - Surgeon's Notes Surgeon: Mansoor [employer] Supervisor: GAYATHRI Quiros Type of Anesthesia: General Endo Anesthesia Administered By: Dr Velazco Pre-Operative Diagnosis: Displaced greater tuberosity fx Operative Findings: Closed reduction displaced greater tuberosity fx. percutaneius pin fixation displaced [id number] tuberosity fx Post-Operative Diagnosis: same Operation Performed: Orif greater tubersoity fx/ percuatneous screw fixation displaced greater tuberosity fx Specimen/Specimens Removed: N/A Estimated Blood Loss: EBL {In ML}: 10 Blood Products Given: N/A Drains Used: No Drains Post-Op Condition: Good Date of Surgery/Procedure: 06/05/16 Time of Surgery/Procedure: 14:15 (incin OR 1307/anetshesia indcution time)
--- NOTE | 2016-06-05 14:56 | PCM.ANESB1 ---
Interscalene Block - Brachial Plexus Date of Procedure: 06/05/16 Anesthesiologist: Juan A Pre-Procedure Diagnosis: Left humeral fracture Post-Procedure Diagnosis: Same Procedure Performed: Interscalene Block of Brachial Plexus Left - Procedure Interscalene Block of Brachial Plexus: This procedure was explained to the patient that it is for post-operative pain management. Consent was obtained after a thorough discussion with the patient regarding the benefits and possible complications of local anesthetic block of the Brachial Plexus at the Interscalene area. The patient was brought to the Operating Room and standard monitors were applied. Time out was held with the circulating nurse to confirm the correct surgery and appropriate block. After applying Oxygen by nasal cannula and administering IV Sedation, the patient's head was gently rotated away from the __left____operative shoulder and the anterior scalene groove was carefully palpated. The ultrasound transducer was then applied to the skin in the transverse plane and the brachial plexus was visualized lateral to the carotid artery and in between the anterior and middle scalene muscles. After identification,the anterior lateral portion of the neck was prepped with Betadine solution three times and Lidocaine 1% was injected subcutaneously for topical analgesia. At this point, a # 22 gauge Stimuplex 2 inches insulated needle was inserted into the interscalene groove and directed in a caudal and midline direction. The needle was inserted lateral to the ultrasound transducer in-plane towards the brachial plexus in a [id number] direction. Needle advancement was performed carefully under direct ultrasound visualization. Nerve stimulator was used and twitched of the affected extremity including the hand brachialis muscles, biceps and the deltoid was obtained at a current of __0.4___MA. After repeated negative aspiration,__20___cc of__.5%___,__Ropivacaine were injected. Under ultrasound guidance the local anesthetics were observed surrounding the roots of the brachial plexus. The needle was removed intact and sterile dressing was applied. The patient had stable vital signs, was conscious and in no apparent distress. The patient tolerated the interscalene block of the bracheal plexus well with stable vital signs and was prepared for subsequent surgery.
[2016-06-05 15:54] VITALS: RESP 18
[2016-06-05] MEDS ORDERED: ceFAZolin 2 GM in Sodium Chloride 0.9% 100 ML IVPB SCH (17:00)
--- NOTE | 2016-06-05 17:00 | CP.PCM.DIS ---
Provider - Provider Date of Admission: 06/03/16 13:32 Attending physician: Mervat Gunderson MD Consults: Ortho: Dr Max ID; Dr Sy - covering for Dr Conner Cardio: Dr Barr Time Spent in preparation of Discharge (in minutes): 40 Diagnosis - Discharge Diagnosis (1) Greater tuberosity of humerus fracture Status: Acute (2) Conjunctivitis Status: Acute (3) Dementia Status: Chronic (4) HTN (hypertension) Status: Chronic (5) Hypothyroidism Status: Chronic (6) Rheumatoid arthritis Status: Chronic Hospital Course - Lab Results Lab Results: Most Recent Lab Values WBC 5.7 K/uL (4.8-10.8) 06/03/16 13:40 RBC 3.77 Mil/uL (3.80-5.20) L 06/03/16 13:40 Hgb 11.0 g/dL (12.0-16.0) L 06/03/16 13:40 Hct 32.8 % (34.0-47.0) L 06/03/16 13:40 MCV 86.9 fl (81.0-99.0) 06/03/16 13:40 MCH 29.2 pg (27.0-31.0) 06/03/16 13:40 MCHC 33.6 g/dL (33.0-37.0) 06/03/16 13:40 RDW 14.3 % (11.5-14.5) 06/03/16 13:40 Plt Count 215 K/uL (130-400) 06/03/16 13:40 MPV 8.6 fl (7.2-11.7) 06/03/16 13:40 Neut % (Auto) 58.3 % (50.0-75.0) 06/03/16 13:40 Lymph % (Auto) 31.0 % (20.0-40.0) 06/03/16 13:40 [place] % (Auto) 7.9 % (0.0-10.0) 06/03/16 13:40 Eos % (Auto) 2.0 % (0.0-4.0) 06/03/16 13:40 Baso % (Auto) 0.8 % (0.0-2.0) 06/03/16 13:40 Neut # 3.3 K/uL (1.8-7.0) 06/03/16 13:40 Lymph # 1.8 K/uL (1.0-4.3) 06/03/16 13:40 [place] # 0.5 K/uL (0.0-0.8) 06/03/16 13:40 Eos # 0.1 K/uL (0.0-0.7) 06/03/16 13:40 Baso # 0.0 K/uL (0.0-0.2) 06/03/16 13:40 PT 10.8 SECONDS (9.6-11.2) 06/04/16 10:48 INR 1.04 (0.92-1.08) 06/04/16 10:48 APTT 24.6 SECONDS (23.3-32.5) 06/04/16 10:48 Sodium 142 mmol/l (132-148) 06/04/16 11:54 Potassium 4.0 MMOL/L (3.6-5.0) 06/04/16 11:54 Chloride 103 mmol/L (98-107) 06/04/16 11:54 Carbon Dioxide 26 mmol/L (22-30) 06/04/16 11:54 Anion Gap 18 (10-20) 06/04/16 11:54 BUN 15 mg/dl (7-17) 06/04/16 11:54 Creatinine 0.7 mg/dL (0.7-1.2) 06/04/16 11:54 Est GFR ( Amer) > 60 06/04/16 11:54 Est GFR (Non-Af Amer) > 60 06/04/16 11:54 Random Glucose 148 mg/dL (65-105) H 06/04/16 11:54 Calcium 9.3 mg/dL (8.4-10.2) 06/04/16 11:54 Total Bilirubin 0.5 mg/dl (0.2-1.3) 06/03/16 13:40 AST 26 U/L (14-36) 06/03/16 13:40 ALT 19 U/L (9-52) 06/03/16 13:40 Alkaline Phosphatase 101 U/L (38-126) 06/03/16 13:40 Total Protein 6.8 G/DL (6.3-8.2) 06/03/16 13:40 Albumin 3.6 g/dL (3.5-5.0) 06/03/16 13:40 Globulin 3.2 gm/dL (2.2-3.9) 06/03/16 13:40 Albumin/Globulin Ratio 1.1 (1.0-2.1) 06/03/16 13:40 Urine Color Straw (YELLOW) 06/05/16 11:23 Urine Clarity Clear (Clear) 06/05/16 11:23 Urine pH 7.0 (5.0-8.0) 06/05/16 11:23 Ur Specific [place] 1.006 (1.003-1.030) 06/05/16 11:23 Urine Protein Negative mg/dL (NEGATIVE) 06/05/16 11:23 Urine Glucose (UA) Neg mg/dL (Normal) 06/05/16 11:23 Urine Ketones Negative mg/dL (NEGATIVE) 06/05/16 11:23 Urine Blood Small (NEGATIVE) 06/05/16 11:23 Urine Nitrate Negative (NEGATIVE) 06/05/16 11:23 Urine Bilirubin Negative (NEGATIVE) 06/05/16 11:23 Urine Urobilinogen 0.2-1.0 mg/dL (0.2-1.0) 06/05/16 11:23 Ur Leukocyte Esterase Neg [place]/uL (Negative) 06/05/16 11:23 Urine RBC (Auto) 3 /hpf (0-3) 06/05/16 11:23 Urine Microscopic WBC 1 /hpf (0-5) 06/05/16 11:23 Ur Squamous Epith Cells 1 /hpf (0-5) 06/05/16 11:23 Ur Renal Epithelial Cell < 1 /hpf (0-3) 06/05/16 11:23 Blood Type O NEGATIVE 06/05/16 08:21 Blood Type Confirm O NEGATIVE 06/05/16 09:10 Antibody Screen Negative 06/05/16 08:21 Crossmatch See Detail 06/05/16 08:21 BBK History Checked No verified bt 06/05/16 08:21 - Hospital Course Hospital Course: 70 y/o lady with hx of RA, HTN, Dementia, Hypothyroidism, came bec of left shoulder pain - plan for Left shoulder ORIF.- however cancelled due to pt having Cojunctivitis (1) Left shoulder pain due to Displaced Greater Tuberosity Fracture s/p ORIF Status: Chronic Hx of fall in February since then has had severe left shoulder pain and unable to do ROM Ortho consulted- Dr Max ORIF done 06/[address] Momo espinoza pt pre op Pain mgt keep Left arm in Sling immobilizer will d/c home PT/OT consulted - rec cane appt with Dr Max in 10 days (2) Rheumatoid arthritis Status: Chronic Pt on Enbrel as outpt Pain mgt (3) Conjunctival hyperemia, left eye poss Conjunctivitis, improved Status: Acute ID consulted- Dr sy- covering for Dr Conner started antibiotic eye drops- Cipro 2 drops q 3 (4) HTN (hypertension) Status: Chronic cont Vasotec and Atenolol off ASA for 8 days (5) Hypothyroidism Status: Chronic cont Levothyroxine (6) Dementia Status: Chronic Pt on Exelon patch ( 7 ) Anxiety - pt on Klonopin (8) Urinalysis showed some WBC , asymptomatic Pt denies dysuria, no fever, no leukocytosis since pt sched for Ortho surgery- started IV Ceftriaxone rpt UA : normal Discharge Exam - Head Exam Head Exam: ATRAUMATIC, NORMAL INSPECTION, NORMOCEPHALIC - Eye Exam Eye Exam: EOMI, Normal appearance Pupil Exam: NORMAL ACCOMODATION Additional comments: left eye conjunctival injection improved - ENT Exam ENT Exam: Mucous Membranes Moist, Normal External Ear Exam - Neck Exam Neck exam: Full Rom - Respiratory Exam Respiratory Exam: NORMAL BREATHING PATTERN. absent: Respiratory Distress - Cardiovascular Exam Cardiovascular Exam: REGULAR RHYTHM, +S1, +S2 - GI/Abdominal Exam GI & Abdominal Exam: Normal Bowel Sounds, Soft. absent: Tenderness - Extremities Exam Extremities exam: normal capillary refill Additional comments: Left arm in immobilizer/sling - Back Exam Back exam: absent: CVA tenderness (L), CVA tenderness (R) - Neurological Exam Neurological exam: Alert, CN II-XII Intact, Normal Gait, Oriented x3, Reflexes Normal - Psychiatric Exam Psychiatric exam: Normal Affect, Normal Mood - Skin Skin Exam: Dry, Normal Color, Warm Discharge Plan - Follow Up Plan Condition: GOOD Disposition: HOME/ ROUTINE Additional Instructions: appt with Dr Max in 10 days Keep Shoulder immobilizer/sling ff up with Ophtha lea Referrals: Chris Barr MD [Staff Provider] - Loi Max III, MD [Staff Provider] -
[2016-06-05 17:10] VITALS: BP 148/62; TEMP 97.3
--- NOTE | 2016-06-05 17:36 | CP.PCM.PN ---
Subjective - Date & Time of Evaluation Date of Evaluation: 06/05/16 Time of Evaluation: 07:00 - Subjective Subjective: conjunctivitis less Objective - Vital Signs/Intake and Output Vital Signs (last 24 hours): Temp Pulse Resp BP Pulse Ox 97.3 F L 56 L 18 148/62 97 06/05/16 17:10 06/05/16 17:10 06/05/16 17:10 06/05/16 17:10 06/05/16 17:10 Intake and Output: 06/05/16 06/05/16 06:59 18:59 Intake Total 780 Balance 780 - Medications Medications: Current Medications Ciprofloxacin (Ciloxan 0.3% Oph Soln) 1 drop OS Q4 [facility] Last Admin: 06/05/16 17:15 Dose: Not Given Clonazepam (Klonopin) 0.25 mg PO HS [facility] Last Admin: 06/04/16 21:13 Dose: 0.25 mg Enalapril Maleate (Vasotec) 20 mg PO BID [facility] Last Admin: 06/05/16 08:19 Dose: 20 mg Folic Acid (Folic Acid) 1 mg PO DAILY [facility] Last Admin: 06/05/16 08:24 Dose: Not Given Gabapentin (Neurontin) 100 mg PO HS [facility] Last Admin: 06/04/16 21:06 Dose: 100 mg Ceftriaxone Sodium 1 gm/ (Sodium Chloride) 100 mls @ 100 mls/hr IVPB DAILY [facility] Last Admin: 06/05/16 08:04 Dose: 100 mls/hr Cefazolin Sodium 2 gm/ Sodium (Chloride) 100 mls @ 100 mls/hr IVPB Q8 [facility] Stop: 06/06/16 01:59 Levothyroxine Sodium (Synthroid) 50 mcg PO DAILY@0630 [facility] Last Admin: 06/05/16 05:55 Dose: 50 mcg Metoprolol Succinate (Toprol Xl) 50 mg PO DAILY [facility] Last Admin: 06/05/16 08:19 Dose: 50 mg Rivastigmine (Exelon 9.5 Mg/24 Hr Patch) 1 patch TD DAILY [facility] Last Admin: 06/05/16 08:23 Dose: Not Given Tramadol HCl (Ultram) 50 mg PO Q12H [facility] Last Admin: 06/05/16 04:15 Dose: Not Given - Labs Labs: 06/03/16 13:40 06/04/16 11:54 PT 10.8 SECONDS (9.6-11.2) 06/04/16 10:48 INR 1.04 (0.92-1.08) 06/04/16 10:48 APTT 24.6 SECONDS (23.3-32.5) 06/04/16 10:48 - Constitutional Appears: Non-toxic, Chronically Ill - Head Exam Head Exam: NORMOCEPHALIC - Eye Exam Eye Exam: PERRL. absent: Scleral icterus - ENT Exam ENT Exam: Mucous Membranes Dry - Neck Exam Neck Exam: absent: Lymphadenopathy - Respiratory Exam Respiratory Exam: Decreased Breath Sounds - Cardiovascular Exam Cardiovascular Exam: REGULAR RHYTHM - GI/Abdominal Exam GI & Abdominal Exam: Distended, Soft. absent: Tenderness - Rectal Exam Rectal Exam: Deferred - Exam Exam: NORMAL INSPECTION - Extremities Exam Extremities Exam: absent: Pedal Edema - Back Exam Back Exam: absent: CVA tenderness (L), CVA tenderness (R) - Neurological Exam Neurological Exam: Alert, Awake, Oriented x3 Assessment and Plan (1) Conjunctivitis Status: Acute (2) HTN (hypertension) Status: Chronic (3) Left shoulder pain Status: Chronic (4) Rheumatoid arthritis Status: Chronic
[2016-06-05 18:18] VITALS: PULSE 79; O2SAT 94
--- NOTE | 2016-06-06 09:52 | RAD ---
PROCEDURE: AP view of the left shoulder HISTORY: s/p oRIF L greater tuberosity fx COMPARISON: Comparison is made to the previous study dated 06/03/2016 TECHNIQUE: AP view of the left shoulder was obtained. FINDINGS: The patient is status post internal fixation at the left humeral head. Interval insertion of 4 screws through the previously seen slightly displaced fracture at the lateral aspect of the left humeral head and humeral tuberosity. No evidence of dislocation. IMPRESSION: Status post internal fixation at the left humeral head through the previously seen slightly displaced fracture.
--- NOTE | 2016-06-06 14:07 | RAD ---
PROCEDURE: Fluoroscopy over 1 hour. HISTORY: ORIF LEFT SHOULDER COMPARISON: None TECHNIQUE: Standard protocol for this study/examination. FINDINGS: Submitted images from the current procedure: 4.0 IMPRESSION: Total fluoroscopic time (continuous mode) utilized during the procedure: 67.4 seconds.
--- NOTE | 2016-06-07 10:22 | OP ---
PROCEDURE DATE: 06/05/2016 PREOPERATIVE DIAGNOSIS: Displaced greater tuberosity fracture, left shoulder. POSTOPERATIVE DIAGNOSIS: Displaced greater tuberosity fracture, left shoulder. PROCEDURES: 1. Open reduction internal fixation of displaced greater tuberosity fracture with interrupted cancel lous screws. 2. Manipulation of the shoulder under anesthesia. 3. Positioning of fluoroscope, interpretation of video images. SURGEON: Loi Max MD DISTANCE EDUCATION TEACHER: Anna Elmore, Certified Registered Nursing Field [employer]. ANESTHESIA: General endotracheal anesthesia. COMPLICATIONS: None. DRAINS: None. OPERATIVE INDICATION: The patient is a 70-year-old woman well known to my practice who sustained a f racture of the shoulder and a fall. The patient treated this on her own with benign neglect. Belen t was seen in the office and surgery was indicated because of the displacement of the greater tuberos ity fragment. The patient did not decide quickly and finally pros, cons, risks and benefits of surgi annel approach were discussed. The possibility of stiffness, mechanical failure, infection, thromboemb olic disease, secondary or tertiary surgery is discussed. The informed consent is obtained through t he culturally competent precipitator operator. OPERATIVE PROCEDURE: After having obtained informed consent in the above fashion, after having ident ified side, site, and procedure, and a critical pause/timeout, after the satisfactory induction of th e anesthetic, the patient identified, in the modified meza chair position, the left upper extremity is prepped and free draped in the usual fashion for upper extremity surgery. All bony prominences w ere well padded. After having obtained informed consent, after having identified side, site and proc edure, a critical pause/timeout, after the satisfactory induction of the anesthetic, the patient iden tified, in the modified meza chair position, the left upper extremity is prepped and free draped in the usual fashion for upper extremity surgery. After sterilely prepping and draping, after having m anipulated the shoulder, verification of position is offered on AP and lateral image intensification views. This having been accomplished, the fracture is found to have reduced with the arm in some abd uction and the shoulder positioner is kept in apposition. At this point in time, the greater tuberosi ty fragment is located. The reduction is found to be acceptable. An incision is accomplished. Skin incision is carried down through the skin and subcutaneous tissue. The percutaneous wire is placed through the greater tuberosity into the humeral head. Measurement is accomplished, verification of p osition is accomplished. The appropriate size drill bit is accomplished and the short thread cancell ous screws placed and found to be acceptably positioned. The exact same phenomenon and procedure is accomplished for the next 3 screws and the screws found to be acceptable in position offering a nice lay into the humeral head. The shoulder was stable on manipulation. Verification of position again is offered on image intensification views. Closure is in layers with interrupted Vicryl and nylon. Intraarticular injection is offered. A Jeferson Hale compression dressing and shoulder abduction spli nt is applied. PROCEDURES: 1. Open reduction internal fixation of greater tuberosity fragment. 2. Closed manipulation of the humeral fracture. 3. Positioning of fluoroscope, interpretation of video images. 4. Intraarticular injection. Loi Max MD cc: [id number] TT: 06/07/2016 10:21:25 adrian
== END 2016-06-05 19:30 | disposition home or self-care (01) ==
LOC: H.ER 12:58 → H.ERHOLD 13:32 → H.MEDSURG1 21:12
PROVIDERS: ADMIT Internal Medicine; ATTEND Internal Medicine
DX: S42.252A Displaced fracture of greater tuberosity of left humerus, initial encounter for closed fracture (principal); H10.9 Unspecified conjunctivitis; W19.XXXA Unspecified fall, initial encounter; Y92.9 Unspecified place or not applicable; Z23 Encounter for immunization; E03.9 Hypothyroidism, unspecified; G30.9 Alzheimer's disease, unspecified; F02.80 Dementia in other diseases classified elsewhere, unspecified severity, without behavioral disturbance, psychotic disturbance, mood disturbance, and anxiety; F41.9 Anxiety disorder, unspecified; I10 Essential (primary) hypertension; I25.10 Atherosclerotic heart disease of native coronary artery without angina pectoris; M06.9 Rheumatoid arthritis, unspecified; M19.90 Unspecified osteoarthritis, unspecified site
CPT/HCPCS: 20610; 23630; 36415; 71010; 73020; 80048; 80053; 81003; 85025; 85610; 85730; 86850; 86900; 86920; 90732; 93005; 96365; 96366; 97161; 97530; 99283; C1713; C1781; G0009; G0378; G8978; G8979; J0690; J0696; J2001; J2250; J2704; J3010; J7030; J7120